=== PATIENT | male | born 1930 | race Caucasian/White ===

== ENCOUNTER 2017-02-04 09:51 | Outpatient (RCR) | payer MEDICARE, OTHER ==
[~2017-02-04 09:51] MED LIST: ALPR.5T PO; ASP81TEC PO; CALC-80 PO; CITA20TA4 PO; FEXO180T PO; FLUT16SP22 NS; GLIP5TAB13 PO; LEVE1U SQ; LEVO125T6 PO; METO25TA PO; MULT-608 PO; RT-COMBINH IH; SILD100T PO; SIMV20TA3 PO
== END 2017-05-05 | disposition home or self-care (01) ==
LOC: ONC 09:51
PROVIDERS: ATTEND Internal Medicine Hematology & Oncology
DX: Z08 Encounter for follow-up examination after completed treatment for malignant neoplasm (principal); Z85.038 Personal history of other malignant neoplasm of large intestine; E11.22 Type 2 diabetes mellitus with diabetic chronic kidney disease; N18.4 Chronic kidney disease, stage 4 (severe); Z79.4 Long term (current) use of insulin
CPT/HCPCS: 99213